=== PATIENT | male | born 1935 | race Caucasian/White ===

== ENCOUNTER 2016-11-21 18:02 | Emergency (ER) | payer MEDICARE, BC ==
[2016-11-21 18:18] VITALS: BP 153/99
--- NOTE | 2016-11-21 18:24 | EDM.PDOC ---
ED HPI GENERAL MEDICAL PROBLEM - General Chief Complaint: Lower Extremity Injury/Pain Stated Complaint: BY AMBULANCE Time Seen by Provider: 11/21/16 18:19 Source of Information: Reports: Patient History Limitations: Reports: No Limitations - History of Present Illness INITIAL COMMENTS - FREE TEXT/NARRATIVE: Pt states that he tripped on a metal slot macjine and fell onto his left leg. Has a brusi and hematoma to left le and swelling noted to left knee. denies LOC, back/neck or hip pain. Unable to bear weight to left leg without it "buckling" Onset: Today Onset Time: 17:00 Location: Reports: Lower Extremity, Left Quality: Reports: Ache Severity: Moderate Improves with: Reports: Immobilization Worsens with: Reports: Movement Context: Reports: Activity Associated Symptoms: Reports: No Other Symptoms - Related Data Allergies Allergy/AdvReac Type Severity Reaction Status Date / Time amoxicillin Allergy Cannot Verified 11/20/14 13:05 Remember captopril [From Capoten] Allergy Cannot Verified 10/02/14 10:42 Remember carbidopa [From Sinemet] Allergy Cannot Verified 10/02/14 10:42 Remember erythromycin base Allergy Cannot Verified 10/02/14 10:42 Remember influenza virus vaccine, Allergy Other Verified 10/02/14 10:42 specific [influenza virus vacc,specific] levodopa [From Sinemet] Allergy Cannot Verified 10/02/14 10:42 Remember Penicillins Allergy Cannot Verified 11/20/14 13:05 Remember ERYT Allergy Cannot Uncoded 10/02/14 10:42 Remember LEVAQUIN Allergy Cannot Uncoded 10/02/14 10:42 Remember Home Meds: Home Meds Losartan Potassium 25 mg PO DAILY 10/02/14 [History] Metoprolol Tartrate 25 mg PO BID 10/02/14 [History] Clopidogrel Bisulfate [Plavix] 75 mg PO DAILY 11/21/16 [History] Past Medical History - Past Surgical History Other HEENT Surgeries/Procedures: DENTURES Social & Family History - Tobacco Use Smoking Status *Q: Former Smoker Month Tobacco Last Used: 09/1959 Second Hand Smoke Exposure: Yes - Alcohol Use Days Per Week of Alcohol Use: 0 - Recreational Drug Use Recreational Drug Use: No Drug Use in Last 12 Months: No Review of Systems - Review of Systems Review Of Systems: See Below Musculoskeletal: Reports: Leg Pain ED EXAM, GENERAL - Physical Exam Exam: See Below Exam Limited By: No Limitations General Appearance: Alert, WD/WN, No Apparent Distress Eye Exam: Bilateral Eye: Normal Inspection, PERRL Respiratory/Chest: No Respiratory Distress, Lungs Clear, Normal Breath Sounds, No Accessory Muscle Use, Chest Non-Tender Cardiovascular: Normal Peripheral Pulses, Regular Rate, Rhythm, No Edema, No Gallop, No JVD, No Rub, Systolic Murmur Peripheral Pulses: 3+: Posterior Tibial (L), Posterior Tibial (R), Dorsalis Pedis (L), Dorsalis Pedis (R) Back Exam: Normal Inspection, Full Range of Motion, NT Extremities: No Pedal Edema, Normal Capillary Refill, Leg Pain, Limited Range of Motion Skin Exam: Warm, No Rash, Ecchymosis, Other (hematoma to left le and abrasion ) Course - Vital Signs Last Recorded V/S: Last Vital Signs Temp 96.7 F 11/21/16 18:17 Pulse 74 11/21/16 18:17 Resp 18 11/21/16 18:17 BP 153/99 H 11/21/16 18:17 Pulse Ox 95 11/21/16 18:17 - Orders/Labs/Meds Orders: Active Orders 24 hr Category Date Time Status Immobilizer [RC] ASDIRECTED Care 11/21/16 19:06 Active Meds: Medications Discontinued Medications Generic Name Dose Route Start Last Admin Trade Name Abraham PRN Reason Stop Dose Admin Acetaminophen 650 mg 11/21/16 19:14 Tylenol PO 11/21/16 19:15 NOW ONE - Radiology Interpretation Free Text/Narrative:: non displaced tibial fracture, pt informed. Will place in immobilizer - Re-Assessments/Exams Free Text/Narrative Re-Assessment/Exam: 11/21/16 19:[address] Salas , Ortho at [facility] who states that patient can be placed in a knee immobilizer and follow up in 1 week in ortho clinic. Will need to call on Wednesday to make appt [phone]. Departure - Departure Time of Disposition: 19:08 Disposition: Home, Self-Care 01 Condition: Good Clinical Impression: Tibia fracture Qualifiers: Encounter type: initial encounter Tibia location: proximal Fracture type: closed Fracture morphology: unspecified fracture morphology Laterality: left Qualified Code(s): S82.102A - Unspecified fracture of upper end of left tibia, initial encounter for closed fracture - Discharge Information Instructions: Tibial Fracture, Adult Additional Instructions: Take the pain medication. Keep the immobilizer on and do not put any weight on that leg. Use crutches for ambualtion. [facility] orthopedic doctors on Wednesday for follow up appt at [phone]. you need to be seen in 1 week. - My Orders Last 24 Hours: My Active Orders 11/21/16 19:06 Immobilizer [RC] ASDIRECTED - Assessment/Plan Last 24 Hours: My Active Orders 11/21/16 19:06 Immobilizer [RC] ASDIRECTED
[2016-11-21] MEDS ORDERED: Acetaminophen 325 MG Tab PO ONE (19:14)
[2016-11-21] MEDS ORDERED: Acetaminophen/HYDROcodone 325-5 MG Tab PO ONE ×2 (19:24→19:39)
[2016-11-21] MEDS ORDERED: Acetaminophen/HYDROcodone 325-10 MG Tab ONE (19:34)
[2016-11-21] MEDS ORDERED: Acetaminophen/HYDROcodone 325-5 MG Tab ONE (19:39)
== END 2016-11-21 20:00 | disposition home or self-care (01) ==
LOC: DL.ED 18:02
DX: S82.102A Unspecified fracture of upper end of left tibia, initial encounter for closed fracture (principal); Z88.0 Allergy status to penicillin; Z88.1 Allergy status to other antibiotic agents; Z88.8 Allergy status to other drugs, medicaments and biological substances; Z79.899 Other long term (current) drug therapy; Z87.891 Personal history of nicotine dependence; W01.0XXA Fall on same level from slipping, tripping and stumbling without subsequent striking against object, initial encounter; Z88.7 Allergy status to serum and vaccine
CPT/HCPCS: 73560; 73590; 99283; 99285; A9270